=== PATIENT | male | born 1935 | race Caucasian/White ===

== ENCOUNTER 2021-07-26 15:43 | Inpatient (IN) | payer OTHER, MEDICARE ==
[2021-07-26] MEDS ORDERED: Morphine 4 MG/ML VIAL ONE (16:42)
[2021-07-26] MEDS ORDERED: Piperacillin/Tazobactam 4.5 GM VIAL ONE (16:48)
[2021-07-26 17:02] LABS: #Monocytes 0.6 10x3/uL (0.0-1.1); #Neutrophils 7.9 10x3/uL (1.5-8.4); %Basophils 0.2 % (0.0-2.0); %Eosinophils 0.4 % (0.0-6.0); %Lymphocytes 9.1 % (18.0-47.0); %Monocytes 6.6 % (0.0-10.0); %Neutrophils 83.3 % (40.0-75.0); Hemoglobin 12.7 g/dL (13.5-17.5); Mean Corpuscular HGB CONC 32.4 g/dL (32.0-36.0); Mean Corpuscular Hemoglobin 32.7 pg (27.0-33.0); Mean Platelet Volume 10.1 fl (7.4-10.4); Platelet Count 246 10x3/uL (150-450); RBC Distribution Width 13.1 % (11.5-14.5); Red Blood Cell (RBC) Count 3.88 10x6/uL (4.32-5.72); White Blood Cell (WBC) Count 9.5 10x3/uL (3.5-10.5)
[2021-07-26 17:19] LABS: ALT (SGPT) 15 U/L (8-55); AST (SGOT) 18 U/L (5-34); Albumin 3.8 g/dL (3.4-4.8); Alkaline Phosphatase 87 U/L (40-110); Anion Gap 15 mmol/L (10-20); BUN (Urea Nitrogen) 20 mg/dL (8.4-25.7); Bilirubin, Total 0.7 mg/dL (0.2-1.2); Calc. Creatinine Clearance 0 mL/min (70-130); Calcium 9.7 mg/dL (7.8-10.44); Carbon Dioxide 24 mmol/L (23-31); Chloride 102 mmol/L (98-107); Glucose 156 mg/dL (83-110); Potassium 4.2 mmol/L (3.5-5.1); Protein, Total 7.8 g/dL (5.8-8.1); Sodium 137 mmol/L (136-145)
[2021-07-26] MEDS ORDERED: Fentanyl 100 MCG/2 ML VIAL ONE (17:48)
[2021-07-26] MEDS ORDERED: Sodium Chloride 0.9% 1,000 ML IV SCH (18:45)
[2021-07-26] MEDS ORDERED: Dextrose 5% in Water 1,000 ML IV PRN (18:51)
[2021-07-26] MEDS ORDERED: Dextrose 50% Abboject 50 ML SYRINGE SLOW IVP PRN (18:51)
[2021-07-26 20:16] LABS: SARS-CoV-2 NAA Rapid Test Not Detected (NotDetected)
[2021-07-27] MEDS: Piperacillin/Tazobactam 3.375 GM in Sodium Chloride 0.9% 100 ML IVPB SCH ×3 (02:05→17:30)
[2021-07-27] MEDS: Sodium Chloride 0.9% 1,000 ML IV SCH ×2 (02:17→14:58)
[2021-07-27 03:47] LABS: #Monocytes 0.9 10x3/uL (0.0-1.1); #Neutrophils 11.9 10x3/uL (1.5-8.4); %Basophils 0.1 % (0.0-2.0); %Lymphocytes 6.7 % (18.0-47.0); %Monocytes 6.2 % (0.0-10.0); %Neutrophils 86.5 % (40.0-75.0); Hemoglobin 12.1 g/dL (13.5-17.5); Mean Corpuscular Hemoglobin 33.3 pg (27.0-33.0); Mean Corpuscular Volume 101.1 fl (81.2-95.1); Mean Platelet Volume 10.2 fl (7.4-10.4); Platelet Count 259 10x3/uL (150-450); RBC Distribution Width 13.2 % (11.5-14.5); Red Blood Cell (RBC) Count 3.63 10x6/uL (4.32-5.72); White Blood Cell (WBC) Count 13.8 10x3/uL (3.5-10.5)
[2021-07-27 04:02] LABS: ALT (SGPT) 14 U/L (8-55); AST (SGOT) 18 U/L (5-34); Albumin 3.7 g/dL (3.4-4.8); Alkaline Phosphatase 74 U/L (40-110); Anion Gap 16 mmol/L (10-20); BUN (Urea Nitrogen) 23 mg/dL (8.4-25.7); Bilirubin, Total 0.7 mg/dL (0.2-1.2); Calc. Creatinine Clearance 87 mL/min (70-130); Calcium 9.5 mg/dL (7.8-10.44); Carbon Dioxide 23 mmol/L (23-31); Chloride 104 mmol/L (98-107); Globulin 3.9 g/dL (2.4-3.5); Glucose 164 mg/dL (83-110); Potassium 4.3 mmol/L (3.5-5.1); Protein, Total 7.6 g/dL (5.8-8.1); Sodium 139 mmol/L (136-145)
[2021-07-27] MEDS: Morphine 4 MG/ML VIAL SLOW IVP PRN ×2 (10:27→15:33)
[2021-07-27] MEDS: Ondansetron PF 4 MG/2 ML Vial IVP PRN (10:55)
[2021-07-27] MEDS ORDERED: Fleet Enema 133 ML BOT PR SCH ×2 (11:30→14:45)
[2021-07-27] MEDS: HumaLOG 300 UNITS/3 ML VIAL SC PRN (18:41)
[2021-07-27] MEDS: Donepezil HCl 5 MG TAB PO SCH (22:01)
[2021-07-28] MEDS: Piperacillin/Tazobactam 3.375 GM in Sodium Chloride 0.9% 100 ML IVPB SCH ×3 (01:11→16:26)
[2021-07-28] MEDS: Morphine 4 MG/ML VIAL SLOW IVP PRN (05:28)
[2021-07-28] MEDS: Atorvastatin Calcium 40 MG TAB PO SCH (08:26)
[2021-07-28] MEDS: Escitalopram Oxalate 20 mg Tablet PO SCH (08:26)
[2021-07-28] MEDS: Spironolactone 25 MG TAB PO SCH (08:26)
[2021-07-28] MEDS: Sodium Chloride 0.9% 1,000 ML IV SCH (08:26)
[2021-07-28 08:31] LABS: #Monocytes 0.6 10x3/uL (0.0-1.1); #Neutrophils 12.6 10x3/uL (1.5-8.4); %Basophils 0.1 % (0.0-2.0); %Lymphocytes 6.3 % (18.0-47.0); %Monocytes 4.4 % (0.0-10.0); %Neutrophils 88.6 % (40.0-75.0); Hemoglobin 11.3 g/dL (13.5-17.5); Mean Corpuscular HGB CONC 32.6 g/dL (32.0-36.0); Mean Corpuscular Hemoglobin 32.9 pg (27.0-33.0); Mean Corpuscular Volume 101.2 fl (81.2-95.1); Mean Platelet Volume 10.3 fl (7.4-10.4); Platelet Count 252 10x3/uL (150-450); RBC Distribution Width 13.4 % (11.5-14.5); Red Blood Cell (RBC) Count 3.43 10x6/uL (4.32-5.72); White Blood Cell (WBC) Count 14.2 10x3/uL (3.5-10.5)
[2021-07-28 08:46] LABS: Anion Gap 16 mmol/L (10-20); BUN (Urea Nitrogen) 31 mg/dL (8.4-25.7); Calc. Creatinine Clearance 85 mL/min (70-130); Calcium 9.7 mg/dL (7.8-10.44); Carbon Dioxide 27 mmol/L (23-31); Chloride 103 mmol/L (98-107); Glucose 155 mg/dL (83-110); Potassium 3.5 mmol/L (3.5-5.1); Sodium 142 mmol/L (136-145)
[2021-07-28] MEDS ORDERED: Carvedilol 6.25 MG TAB PO SCH (09:00)
[2021-07-28] MEDS: Carvedilol 6.25 MG TAB PO SCH (16:25)
[2021-07-28] MEDS: Ondansetron PF 4 MG/2 ML Vial IVP PRN (17:11)
[2021-07-28] MEDS: Donepezil HCl 5 MG TAB PO SCH (20:52)
[2021-07-29] MEDS: Piperacillin/Tazobactam 3.375 GM in Sodium Chloride 0.9% 100 ML IVPB SCH ×3 (01:13→16:43)
[2021-07-29 05:29] LABS: #Monocytes 0.5 10x3/uL (0.0-1.1); #Neutrophils 12.3 10x3/uL (1.5-8.4); %Basophils 0.1 % (0.0-2.0); %Lymphocytes 5.2 % (18.0-47.0); %Monocytes 3.7 % (0.0-10.0); Hemoglobin 11.5 g/dL (13.5-17.5); Mean Corpuscular HGB CONC 31.9 g/dL (32.0-36.0); Mean Corpuscular Hemoglobin 32.8 pg (27.0-33.0); Mean Corpuscular Volume 102.6 fl (81.2-95.1); Mean Platelet Volume 10.5 fl (7.4-10.4); Platelet Count 280 10x3/uL (150-450); RBC Distribution Width 13.4 % (11.5-14.5); Red Blood Cell (RBC) Count 3.51 10x6/uL (4.32-5.72); White Blood Cell (WBC) Count 13.6 10x3/uL (3.5-10.5)
[2021-07-29 05:46] LABS: Anion Gap 18 mmol/L (10-20); BUN (Urea Nitrogen) 37 mg/dL (8.4-25.7); Calc. Creatinine Clearance 77 mL/min (70-130); Calcium 9.9 mg/dL (7.8-10.44); Carbon Dioxide 28 mmol/L (23-31); Chloride 102 mmol/L (98-107); Glucose 148 mg/dL (83-110); Magnesium 2.3 mg/dL (1.6-2.6); Potassium 3.5 mmol/L (3.5-5.1); Sodium 144 mmol/L (136-145)
[2021-07-29] MEDS: Sodium Chloride 0.9% 1,000 ML IV SCH (06:28)
[2021-07-29] MEDS: Carvedilol 6.25 MG TAB PO SCH ×2 (07:09→16:53)
[2021-07-29] MEDS ORDERED: Furosemide 20 MG/2 ML VIAL SLOW IVP SCH (08:00)
[2021-07-29] MEDS: Spironolactone 25 MG TAB PO SCH (09:15)
[2021-07-29] MEDS: Escitalopram Oxalate 20 mg Tablet PO SCH (09:15)
[2021-07-29] MEDS: Atorvastatin Calcium 40 MG TAB PO SCH (09:16)
[2021-07-29] MEDS: Sacubitril 49 MG/Valsartan 51 MG TABLET PO SCH ×2 (10:31→21:30)
[2021-07-29] MEDS: Donepezil HCl 5 MG TAB PO SCH (21:30)
[2021-07-30] MEDS ORDERED: Furosemide 20 MG/2 ML VIAL SLOW IVP SCH (00:15)
[2021-07-30] MEDS ORDERED: Albuterol Sulfate 2.5 mg/3 ml Neb NEB PRN (00:21)
[2021-07-30] MEDS: Sodium Chloride 0.9% 1,000 ML IV SCH (01:00)
[2021-07-30] MEDS: Morphine 4 MG/ML VIAL SLOW IVP PRN (01:14)
[2021-07-30] MEDS: Piperacillin/Tazobactam 3.375 GM in Sodium Chloride 0.9% 100 ML IVPB SCH ×3 (01:57→16:38)
[2021-07-30 04:47] LABS: #Monocytes 0.7 10x3/uL (0.0-1.1); #Neutrophils 11.2 10x3/uL (1.5-8.4); %Basophils 0.1 % (0.0-2.0); %Eosinophils 0.1 % (0.0-6.0); %Lymphocytes 6.5 % (18.0-47.0); %Monocytes 5.1 % (0.0-10.0); %Neutrophils 87.6 % (40.0-75.0); Hemoglobin 11.3 g/dL (13.5-17.5); Mean Corpuscular HGB CONC 33.1 g/dL (32.0-36.0); Mean Corpuscular Hemoglobin 33.2 pg (27.0-33.0); Mean Corpuscular Volume 100.3 fl (81.2-95.1); Mean Platelet Volume 10.3 fl (7.4-10.4); Platelet Count 301 10x3/uL (150-450); RBC Distribution Width 13.2 % (11.5-14.5); White Blood Cell (WBC) Count 12.8 10x3/uL (3.5-10.5)
[2021-07-30 05:01] LABS: Anion Gap 17 mmol/L (10-20); BUN (Urea Nitrogen) 51 mg/dL (8.4-25.7); Calc. Creatinine Clearance 70 mL/min (70-130); Calcium 9.9 mg/dL (7.8-10.44); Carbon Dioxide 29 mmol/L (23-31); Chloride 101 mmol/L (98-107); Glucose 147 mg/dL (83-110); Potassium 3.2 mmol/L (3.5-5.1); Sodium 144 mmol/L (136-145)
[2021-07-30] MEDS ORDERED: Artificial Tear Sol 15 ML BOT EA EYE PRN (08:02)
[2021-07-30] MEDS ORDERED: Sodium Chloride 0.65% Nasal 44 ML BOT EA NARE PRN (08:02)
[2021-07-30] MEDS ORDERED: Moisturizing Cream (Eucerin) 113 GM JAR TOP PRN (08:02)
[2021-07-30] MEDS ORDERED: Carvedilol 12.5 MG TAB PO SCH (08:30)
[2021-07-30] MEDS ORDERED: Potassium Chloride 20 MEQ TAB PO SCH (09:15)
[2021-07-30] MEDS: Atorvastatin Calcium 40 MG TAB PO SCH (09:38)
[2021-07-30] MEDS: Sacubitril 49 MG/Valsartan 51 MG TABLET PO SCH ×2 (09:38→20:31)
[2021-07-30] MEDS: Pantoprazole 40 MG VIAL IVP SCH (09:38)
[2021-07-30] MEDS: Spironolactone 25 MG TAB PO SCH (09:38)
[2021-07-30] MEDS: Escitalopram Oxalate 20 mg Tablet PO SCH (09:38)
[2021-07-30] MEDS: Furosemide 20 MG/2 ML VIAL SLOW IVP SCH (09:39)
[2021-07-30] MEDS ORDERED: Sodium Bicarbonate 2.5 MEQ/5 ML VIAL ONE (13:19)
[2021-07-30] MEDS ORDERED: Lidocaine 1% PF 5 ML VIAL ONE (13:19)
[2021-07-30] MEDS: Carvedilol 12.5 MG TAB PO SCH (16:38)
[2021-07-30] MEDS: Melatonin 3 MG TAB PER TUBE PRN (20:30)
[2021-07-30] MEDS: Donepezil HCl 5 MG TAB PO SCH (20:31)
[2021-07-31] MEDS: Sodium Chloride 0.9% 1,000 ML IV SCH ×3 (00:25→21:01)
[2021-07-31] MEDS: Piperacillin/Tazobactam 3.375 GM in Sodium Chloride 0.9% 100 ML IVPB SCH ×3 (01:45→16:33)
[2021-07-31 04:34] LABS: ALT (SGPT) 18 U/L (8-55); AST (SGOT) 33 U/L (5-34); Albumin 3.2 g/dL (3.4-4.8); Alkaline Phosphatase 66 U/L (40-110); Anion Gap 17 mmol/L (10-20); BUN (Urea Nitrogen) 55 mg/dL (8.4-25.7); Bilirubin, Total 0.6 mg/dL (0.2-1.2); Calc. Creatinine Clearance 83 mL/min (70-130); Calcium 9.6 mg/dL (7.8-10.44); Carbon Dioxide 29 mmol/L (23-31); Chloride 103 mmol/L (98-107); Globulin 3.8 g/dL (2.4-3.5); Glucose 140 mg/dL (83-110); Magnesium 2.4 mg/dL (1.6-2.6); Phosphorus 3.5 mg/dL (2.3-4.7); Potassium 3.1 mmol/L (3.5-5.1); Sodium 146 mmol/L (136-145)
[2021-07-31 04:46] LABS: #Eosinphils 0.1 10x3/uL (0.0-0.5); #Monocytes 0.9 10x3/uL (0.0-1.1); %Basophils 0.2 % (0.0-2.0); %Eosinophils 0.6 % (0.0-6.0); %Lymphocytes 10.6 % (18.0-47.0); %Monocytes 8.6 % (0.0-10.0); %Neutrophils 79.6 % (40.0-75.0); Hemoglobin 11.5 g/dL (13.5-17.5); Mean Corpuscular HGB CONC 31.5 g/dL (32.0-36.0); Mean Corpuscular Hemoglobin 32.4 pg (27.0-33.0); Mean Corpuscular Volume 102.8 fl (81.2-95.1); Mean Platelet Volume 10.2 fl (7.4-10.4); Platelet Count 302 10x3/uL (150-450); RBC Distribution Width 12.9 % (11.5-14.5); Red Blood Cell (RBC) Count 3.55 10x6/uL (4.32-5.72); White Blood Cell (WBC) Count 10.1 10x3/uL (3.5-10.5)
[2021-07-31] MEDS: Sacubitril 49 MG/Valsartan 51 MG TABLET PO SCH ×2 (08:57→21:07)
[2021-07-31] MEDS ORDERED: Potassium Chloride 20 MEQ TAB PO SCH (09:00)
[2021-07-31] MEDS: Spironolactone 25 MG TAB PO SCH (09:00)
[2021-07-31] MEDS: Escitalopram Oxalate 20 mg Tablet PO SCH (09:00)
[2021-07-31] MEDS: Atorvastatin Calcium 40 MG TAB PO SCH (09:00)
[2021-07-31] MEDS: Furosemide 20 MG/2 ML VIAL SLOW IVP SCH (09:01)
[2021-07-31] MEDS: Carvedilol 12.5 MG TAB PO SCH ×2 (09:01→16:33)
[2021-07-31] MEDS: Pantoprazole 40 MG VIAL IVP SCH (09:01)
[2021-07-31] MEDS: Morphine 4 MG/ML VIAL SLOW IVP PRN ×2 (09:25→23:23)
[2021-07-31] MEDS: Potassium Chloride 10 MEQ/100 ML PREMIX BAG IVPB SCH ×2 (09:30→17:42)
[2021-07-31] MEDS: Multivitamins, Adult 10 ML, ZINC/COPPER/MANGANESE/SELENIUM 1 ML in D15W-AA 5% w/o Lytes... IV SCH (16:33)
[2021-07-31] MEDS: Donepezil HCl 5 MG TAB PO SCH (21:00)
[2021-07-31] MEDS: HumaLOG 300 UNITS/3 ML VIAL SC PRN (21:38)
[2021-07-31] MEDS: Melatonin 3 MG TAB PER TUBE PRN (21:39)
[2021-08-01] MEDS ORDERED: Piperacillin/Tazobactam 3.375 GM VIAL ONE (00:16)
[2021-08-01] MEDS: Piperacillin/Tazobactam 3.375 GM in Sodium Chloride 0.9% 100 ML IVPB SCH ×3 (00:41→17:22)
[2021-08-01] MEDS: Potassium Chloride 10 MEQ/100 ML PREMIX BAG IVPB SCH (01:20)
[2021-08-01 04:49] LABS: #Eosinphils 0.2 10x3/uL (0.0-0.5); #Monocytes 1.1 10x3/uL (0.0-1.1); #Neutrophils 8.1 10x3/uL (1.5-8.4); %Basophils 0.3 % (0.0-2.0); %Eosinophils 2.2 % (0.0-6.0); %Lymphocytes 13.5 % (18.0-47.0); %Monocytes 10.1 % (0.0-10.0); %Neutrophils 73.1 % (40.0-75.0); Hemoglobin 11.8 g/dL (13.5-17.5); Mean Corpuscular HGB CONC 32.6 g/dL (32.0-36.0); Mean Corpuscular Hemoglobin 32.3 pg (27.0-33.0); Mean Corpuscular Volume 99.2 fl (81.2-95.1); Mean Platelet Volume 10.9 fl (7.4-10.4); Platelet Count 327 10x3/uL (150-450); Red Blood Cell (RBC) Count 3.65 10x6/uL (4.32-5.72); White Blood Cell (WBC) Count 11.1 10x3/uL (3.5-10.5)
[2021-08-01 05:13] LABS: Anion Gap 16 mmol/L (10-20); BUN (Urea Nitrogen) 50 mg/dL (8.4-25.7); Calc. Creatinine Clearance 81 mL/min (70-130); Calcium 9.4 mg/dL (7.8-10.44); Carbon Dioxide 30 mmol/L (23-31); Chloride 105 mmol/L (98-107); Glucose 144 mg/dL (83-110); Potassium 3.6 mmol/L (3.5-5.1); Sodium 147 mmol/L (136-145)
[2021-08-01] MEDS: Spironolactone 25 MG TAB PO SCH (10:04)
[2021-08-01] MEDS: Sacubitril 49 MG/Valsartan 51 MG TABLET PO SCH ×2 (10:05→20:54)
[2021-08-01] MEDS: Carvedilol 12.5 MG TAB PO SCH ×2 (10:05→17:22)
[2021-08-01] MEDS: Escitalopram Oxalate 20 mg Tablet PO SCH (10:05)
[2021-08-01] MEDS: Furosemide 20 MG/2 ML VIAL SLOW IVP SCH (10:05)
[2021-08-01] MEDS: Atorvastatin Calcium 40 MG TAB PO SCH (10:05)
[2021-08-01] MEDS: HumaLOG 300 UNITS/3 ML VIAL SC PRN ×2 (17:31→21:06)
[2021-08-01] MEDS: Multivitamins, Adult 10 ML, ZINC/COPPER/MANGANESE/SELENIUM 1 ML in D15W-AA 5% w/o Lytes... IV SCH (17:32)
[2021-08-01] MEDS ORDERED: Melatonin 3 MG TAB ONE (20:27)
[2021-08-01] MEDS: Melatonin 3 MG TAB PER TUBE PRN (20:53)
[2021-08-01] MEDS: Fat Emulsion 250 ML IVPB SCH (20:54)
[2021-08-01] MEDS: Donepezil HCl 5 MG TAB PO SCH (20:54)
[2021-08-02] MEDS: Piperacillin/Tazobactam 3.375 GM in Sodium Chloride 0.9% 100 ML IVPB SCH ×3 (02:30→17:52)
[2021-08-02] MEDS: HumaLOG 300 UNITS/3 ML VIAL SC PRN ×4 (06:10→21:23)
[2021-08-02] MEDS: Sacubitril 49 MG/Valsartan 51 MG TABLET PO SCH ×2 (08:25→20:22)
[2021-08-02] MEDS: Spironolactone 25 MG TAB PO SCH (08:26)
[2021-08-02] MEDS: Atorvastatin Calcium 40 MG TAB PO SCH (08:27)
[2021-08-02] MEDS: Furosemide 20 MG/2 ML VIAL SLOW IVP SCH (08:27)
[2021-08-02] MEDS: Carvedilol 12.5 MG TAB PO SCH ×2 (08:27→17:52)
[2021-08-02] MEDS: hydrALAZINE 20 MG/ML VIAL SLOW IVP PRN (13:16)
[2021-08-02] MEDS: Multivitamins, Adult 10 ML, ZINC/COPPER/MANGANESE/SELENIUM 1 ML in D15W-AA 5% w/o Lytes... IV SCH (18:18)
[2021-08-02] MEDS: Melatonin 3 MG TAB PER TUBE PRN (20:22)
[2021-08-02] MEDS: Donepezil HCl 5 MG TAB PO SCH (20:22)
[2021-08-03] MEDS: Piperacillin/Tazobactam 3.375 GM in Sodium Chloride 0.9% 100 ML IVPB SCH ×3 (02:19→16:16)
[2021-08-03 04:11] LABS: #Eosinphils 0.2 10x3/uL (0.0-0.5); #Monocytes 0.8 10x3/uL (0.0-1.1); #Neutrophils 6.6 10x3/uL (1.5-8.4); %Basophils 0.4 % (0.0-2.0); %Eosinophils 2.4 % (0.0-6.0); %Lymphocytes 15.7 % (18.0-47.0); %Neutrophils 71.2 % (40.0-75.0); Hemoglobin 11.5 g/dL (13.5-17.5); Mean Corpuscular HGB CONC 32.2 g/dL (32.0-36.0); Mean Corpuscular Hemoglobin 32.6 pg (27.0-33.0); Mean Corpuscular Volume 101.1 fl (81.2-95.1); Mean Platelet Volume 10.6 fl (7.4-10.4); Platelet Count 298 10x3/uL (150-450); RBC Distribution Width 12.9 % (11.5-14.5); Red Blood Cell (RBC) Count 3.53 10x6/uL (4.32-5.72); White Blood Cell (WBC) Count 9.3 10x3/uL (3.5-10.5)
[2021-08-03 04:43] LABS: Anion Gap 14 mmol/L (10-20); BUN (Urea Nitrogen) 42 mg/dL (8.4-25.7); CRP (Inflammatory) 1.54 mg/dL (= or < 0.5); Calc. Creatinine Clearance 100 mL/min (70-130); Carbon Dioxide 27 mmol/L (23-31); Chloride 104 mmol/L (98-107); Glucose 189 mg/dL (83-110); Sodium 142 mmol/L (136-145)
[2021-08-03 04:51] LABS: Potassium 2.8 mmol/L (3.5-5.1)
[2021-08-03] MEDS: HumaLOG 300 UNITS/3 ML VIAL SC PRN ×3 (05:59→21:44)
[2021-08-03] MEDS ORDERED: Electrolyte Replacement Protocol 1 EACH FS SCH (07:30)
[2021-08-03] MEDS ORDERED: Morphine 2 MG/ML VIAL SLOW IVP PRN (07:33)
[2021-08-03] MEDS: Sacubitril 49 MG/Valsartan 51 MG TABLET PO SCH ×2 (08:08→22:06)
[2021-08-03] MEDS: Escitalopram Oxalate 20 mg Tablet PO SCH (08:08)
[2021-08-03] MEDS: Spironolactone 25 MG TAB PO SCH (08:09)
[2021-08-03] MEDS: Potassium Chloride 20 MEQ in Premix Bag 1 BAG IVPB SCH ×2 (08:09→14:17)
[2021-08-03] MEDS: Carvedilol 12.5 MG TAB PO SCH ×2 (08:09→16:15)
[2021-08-03] MEDS: Atorvastatin Calcium 40 MG TAB PO SCH (08:11)
[2021-08-03] MEDS: hydrALAZINE 20 MG/ML VIAL SLOW IVP PRN (09:36)
[2021-08-03] MEDS ORDERED: Potassium Bicarbonate/Cit Ac 20 MEQ TAB PO SCH (12:00)
[2021-08-03] MEDS: Multivitamins, Adult 10 ML, ZINC/COPPER/MANGANESE/SELENIUM 1 ML in D15W-AA 5% w/o Lytes... IV SCH (18:58)
[2021-08-03] MEDS: Donepezil HCl 5 MG TAB PO SCH (22:06)
[2021-08-04] MEDS: Piperacillin/Tazobactam 3.375 GM in Sodium Chloride 0.9% 100 ML IVPB SCH ×3 (01:00→17:32)
[2021-08-04 06:09] LABS: Anion Gap 15 mmol/L (10-20); BUN (Urea Nitrogen) 43 mg/dL (8.4-25.7); Calc. Creatinine Clearance 99 mL/min (70-130); Calcium 8.9 mg/dL (7.8-10.44); Carbon Dioxide 24 mmol/L (23-31); Chloride 103 mmol/L (98-107); Glucose 205 mg/dL (83-110); Potassium 3.1 mmol/L (3.5-5.1); Sodium 139 mmol/L (136-145)
[2021-08-04 06:11] LABS: Phosphorus 2.3 mg/dL (2.3-4.7)
[2021-08-04] MEDS: HumaLOG 300 UNITS/3 ML VIAL SC PRN (06:31)
[2021-08-04] MEDS ORDERED: Potassium Bicarbonate/Cit Ac 20 MEQ TAB PO SCH (08:00)
[2021-08-04] MEDS ORDERED: Magnesium 2 GM/50 ML(in water) 2 GM in Premix Bag 1 BAG IVPB SCH (08:00)
[2021-08-04] MEDS: Pantoprazole 40 MG VIAL IVP SCH (09:17)
[2021-08-04] MEDS: Spironolactone 25 MG TAB PO SCH (09:18)
[2021-08-04] MEDS: Carvedilol 12.5 MG TAB PO SCH ×2 (09:18→17:32)
[2021-08-04] MEDS: Escitalopram Oxalate 20 mg Tablet PO SCH (09:18)
[2021-08-04] MEDS: Atorvastatin Calcium 40 MG TAB PO SCH (09:18)
[2021-08-04] MEDS: Sacubitril 49 MG/Valsartan 51 MG TABLET PO SCH ×2 (09:19→20:57)
[2021-08-04] MEDS ORDERED: Iopamidol 300 61% 100 ML VIAL FS ONE (10:15)
[2021-08-04] MEDS ORDERED: Potassium Chloride 20 MEQ in Premix Bag 1 BAG IVPB SCH (11:00)
[2021-08-04 14:30] LABS: Potassium 4.4 mmol/L (3.5-5.1)
[2021-08-04] MEDS: Fat Emulsion 250 ML IVPB SCH (17:32)
[2021-08-04] MEDS: Multivitamins, Adult 10 ML, ZINC/COPPER/MANGANESE/SELENIUM 1 ML in D15W-AA 5% w/o Lytes... IV SCH (17:32)
[2021-08-04] MEDS: Donepezil HCl 5 MG TAB PO SCH (20:56)
[2021-08-04] MEDS: Lantus 1000 UNITS/10 ML VIAL SC SCH (22:00)
[2021-08-04 22:32] LABS: SARS-CoV-2 PCR by NAA Not Detected (NotDetected)
[2021-08-05] MEDS: Piperacillin/Tazobactam 3.375 GM in Sodium Chloride 0.9% 100 ML IVPB SCH ×3 (02:00→17:19)
[2021-08-05 05:37] LABS: Anion Gap 12 mmol/L (10-20); BUN (Urea Nitrogen) 34 mg/dL (8.4-25.7); Calc. Creatinine Clearance 116 mL/min (70-130); Calcium 8.5 mg/dL (7.8-10.44); Carbon Dioxide 26 mmol/L (23-31); Chloride 99 mmol/L (98-107); Glucose 176 mg/dL (83-110); Magnesium 2.3 mg/dL (1.6-2.6); Potassium 3.1 mmol/L (3.5-5.1); Sodium 134 mmol/L (136-145)
[2021-08-05] MEDS ORDERED: Potassium Bicarbonate/Cit Ac 20 MEQ TAB PO SCH (06:00)
[2021-08-05] MEDS: PHOS-NAK 1 PKT PACK PO SCH ×2 (06:41→17:23)
[2021-08-05] MEDS ORDERED: Potassium Chloride 20 MEQ in Premix Bag 1 BAG IVPB SCH (09:00)
[2021-08-05] MEDS: Carvedilol 12.5 MG TAB PO SCH ×2 (09:44→17:19)
[2021-08-05] MEDS: Pantoprazole 40 MG VIAL IVP SCH (09:44)
[2021-08-05] MEDS: Sacubitril 49 MG/Valsartan 51 MG TABLET PO SCH ×2 (09:46→20:21)
[2021-08-05] MEDS: Atorvastatin Calcium 40 MG TAB PO SCH (09:50)
[2021-08-05] MEDS: Escitalopram Oxalate 20 mg Tablet PO SCH (09:50)
[2021-08-05 10:01] LABS: Potassium 3.4 mmol/L (3.5-5.1)
[2021-08-05] MEDS ORDERED: PROPOFOL 20 ML ONE (13:57)
[2021-08-05] MEDS: Multivitamins, Adult 10 ML, ZINC/COPPER/MANGANESE/SELENIUM 1 ML in D15W-AA 5% w/o Lytes... IV SCH (17:23)
[2021-08-05] MEDS: HumaLOG 300 UNITS/3 ML VIAL SC PRN (20:21)
[2021-08-05] MEDS: Melatonin 3 MG TAB PER TUBE PRN ×2 (20:21)
[2021-08-05] MEDS: Donepezil HCl 5 MG TAB PO SCH (20:21)
[2021-08-05] MEDS: Lantus 1000 UNITS/10 ML VIAL SC SCH (20:23)
[2021-08-06] MEDS: Piperacillin/Tazobactam 3.375 GM in Sodium Chloride 0.9% 100 ML IVPB SCH ×2 (01:09→09:57)
[2021-08-06 05:02] LABS: #Eosinphils 0.2 10x3/uL (0.0-0.5); #Monocytes 0.7 10x3/uL (0.0-1.1); #Neutrophils 7.5 10x3/uL (1.5-8.4); %Basophils 0.4 % (0.0-2.0); %Eosinophils 2.5 % (0.0-6.0); %Lymphocytes 7.9 % (18.0-47.0); %Monocytes 7.3 % (0.0-10.0); %Neutrophils 81.1 % (40.0-75.0); Hemoglobin 10.1 g/dL (13.5-17.5); Mean Corpuscular Hemoglobin 32.2 pg (27.0-33.0); Mean Corpuscular Volume 97.5 fl (81.2-95.1); Mean Platelet Volume 11.1 fl (7.4-10.4); Platelet Count 232 10x3/uL (150-450); RBC Distribution Width 12.8 % (11.5-14.5); Red Blood Cell (RBC) Count 3.14 10x6/uL (4.32-5.72); White Blood Cell (WBC) Count 9.2 10x3/uL (3.5-10.5)
[2021-08-06 05:26] LABS: ALT (SGPT) 30 U/L (8-55); AST (SGOT) 27 U/L (5-34); Albumin 2.9 g/dL (3.4-4.8); Alkaline Phosphatase 65 U/L (40-110); Anion Gap 13 mmol/L (10-20); BUN (Urea Nitrogen) 25 mg/dL (8.4-25.7); Bilirubin, Total 0.5 mg/dL (0.2-1.2); Calc. Creatinine Clearance 114 mL/min (70-130); Calcium 8.7 mg/dL (7.8-10.44); Carbon Dioxide 26 mmol/L (23-31); Chloride 100 mmol/L (98-107); Globulin 3.5 g/dL (2.4-3.5); Glucose 177 mg/dL (83-110); Phosphorus 2.1 mg/dL (2.3-4.7); Protein, Total 6.4 g/dL (5.8-8.1); Sodium 136 mmol/L (136-145)
[2021-08-06] MEDS: HumaLOG 300 UNITS/3 ML VIAL SC PRN (05:44)
[2021-08-06] MEDS ORDERED: Magnesium 2 GM/50 ML(in water) 2 GM in Premix Bag 1 BAG IVPB SCH (06:15)
[2021-08-06] MEDS ORDERED: Potassium Bicarbonate/Cit Ac 20 MEQ TAB PO SCH ×2 (06:15→13:30)
[2021-08-06] MEDS: Carvedilol 12.5 MG TAB PO SCH ×2 (10:19→18:06)
[2021-08-06] MEDS: Escitalopram Oxalate 20 mg Tablet PO SCH (10:19)
[2021-08-06] MEDS: Atorvastatin Calcium 40 MG TAB PO SCH (10:19)
[2021-08-06] MEDS: Sacubitril 49 MG/Valsartan 51 MG TABLET PO SCH ×2 (10:20→21:58)
[2021-08-06] MEDS: Spironolactone 25 MG TAB PO SCH (10:20)
[2021-08-06] MEDS: Potassium Chloride 20 MEQ in Premix Bag 1 BAG IVPB SCH ×2 (10:20→12:28)
[2021-08-06] MEDS: Pantoprazole 40 MG VIAL IVP SCH (10:20)
[2021-08-06 12:55] LABS: Potassium 3.3 mmol/L (3.5-5.1)
[2021-08-06] MEDS ORDERED: Potassium Chloride 20 MEQ TAB PO SCH (13:30)
[2021-08-06] MEDS ORDERED: Aspirin 81 mg Enteric Coated Tablet PO SCH (17:15)
[2021-08-06 18:00] LABS: Anion Gap 10 mmol/L (10-20); BUN (Urea Nitrogen) 20 mg/dL (8.4-25.7); Calc. Creatinine Clearance 115 mL/min (70-130); Calcium 8.8 mg/dL (7.8-10.44); Carbon Dioxide 27 mmol/L (23-31); Chloride 99 mmol/L (98-107); Glucose 196 mg/dL (83-110); Magnesium 2.4 mg/dL (1.6-2.6); Potassium 3.5 mmol/L (3.5-5.1); Sodium 132 mmol/L (136-145)
[2021-08-06 18:09] LABS: Phosphorus 1.9 mg/dL (2.3-4.7)
[2021-08-06] MEDS: Donepezil HCl 5 MG TAB PO SCH (21:57)
[2021-08-06] MEDS: Lantus 1000 UNITS/10 ML VIAL SC SCH (22:09)
[2021-08-06] MEDS: Melatonin 3 MG TAB PER TUBE PRN (23:10)
[2021-08-06] MEDS: PHOS-NAK 1 PKT PACK PO SCH (23:11)
[2021-08-07] MEDS: PHOS-NAK 1 PKT PACK PO SCH (02:11)
[2021-08-07 05:34] LABS: #Eosinphils 0.1 10x3/uL (0.0-0.5); #Monocytes 0.9 10x3/uL (0.0-1.1); #Neutrophils 8.8 10x3/uL (1.5-8.4); %Basophils 0.3 % (0.0-2.0); %Eosinophils 1.3 % (0.0-6.0); %Lymphocytes 8.5 % (18.0-47.0); %Monocytes 8.2 % (0.0-10.0); %Neutrophils 81.1 % (40.0-75.0); Hemoglobin 9.5 g/dL (13.5-17.5); Mean Corpuscular HGB CONC 33.1 g/dL (32.0-36.0); Mean Corpuscular Hemoglobin 32.4 pg (27.0-33.0); Mean Platelet Volume 11.4 fl (7.4-10.4); Platelet Count 226 10x3/uL (150-450); RBC Distribution Width 13.1 % (11.5-14.5); Red Blood Cell (RBC) Count 2.93 10x6/uL (4.32-5.72); White Blood Cell (WBC) Count 10.9 10x3/uL (3.5-10.5)
[2021-08-07 05:45] LABS: ALT (SGPT) 28 U/L (8-55); AST (SGOT) 26 U/L (5-34); Albumin 2.8 g/dL (3.4-4.8); Alkaline Phosphatase 63 U/L (40-110); Anion Gap 11 mmol/L (10-20); BUN (Urea Nitrogen) 19 mg/dL (8.4-25.7); Bilirubin, Total 0.6 mg/dL (0.2-1.2); Calc. Creatinine Clearance 116 mL/min (70-130); Calcium 8.5 mg/dL (7.8-10.44); Carbon Dioxide 26 mmol/L (23-31); Cardiac Risk 3.7 (Less than 4.5); Chloride 100 mmol/L (98-107); Cholesterol 81 mg/dl (< 200 Desired); Globulin 3.3 g/dL (2.4-3.5); Glucose 128 mg/dL (83-110); HDL Cholesterol 22 mg/dL (>60 Neg Risk); LDL Cholesterol, Calculated 42 mg/dL; Magnesium 2.2 mg/dL (1.6-2.6); Potassium 3.3 mmol/L (3.5-5.1); Protein, Total 6.1 g/dL (5.8-8.1); Sodium 134 mmol/L (136-145); Triglycerides 86 mg/dL (Less than 150)
[2021-08-07] MEDS ORDERED: Potassium Chloride 20 MEQ TAB PO SCH (06:15)
[2021-08-07 06:21] VITALS: BMI 35.3
[2021-08-07] MEDS: Acetaminophen 650 MG Suppository PR PRN ×2 (06:44→20:14)
[2021-08-07 09:03] LABS: Phosphorus 2.9 mg/dL (2.3-4.7)
[2021-08-07] MEDS: Escitalopram Oxalate 20 mg Tablet PO SCH (10:24)
[2021-08-07] MEDS: Sacubitril 49 MG/Valsartan 51 MG TABLET PO SCH ×2 (10:24→20:14)
[2021-08-07] MEDS: Spironolactone 25 MG TAB PO SCH (10:25)
[2021-08-07] MEDS: Atorvastatin Calcium 40 MG TAB PO SCH (10:25)
[2021-08-07] MEDS: Carvedilol 12.5 MG TAB PO SCH ×2 (10:25→18:00)
[2021-08-07] MEDS: Pantoprazole 40 MG VIAL IVP SCH (10:26)
[2021-08-07] MEDS: Aspirin 81 mg Enteric Coated Tablet PO SCH (10:26)
[2021-08-07] MEDS: Dextrose 5 % And 0.9 % NaCl 1,000 ML IV SCH (18:04)
[2021-08-07] MEDS: Donepezil HCl 5 MG TAB PO SCH (20:14)
[2021-08-07] MEDS: Lantus 1000 UNITS/10 ML VIAL SC SCH (20:32)
[2021-08-07] MEDS: Melatonin 3 MG TAB PER TUBE PRN (23:59)
[2021-08-08] MEDS: Acetaminophen 650 MG Suppository PR PRN
[2021-08-08] MEDS: Nystatin Powder 15 GM BOT TOP PRN ×2 (01:59→09:57)
[2021-08-08] MEDS: Pantoprazole 40 MG VIAL IVP SCH (09:56)
[2021-08-08] MEDS: Atorvastatin Calcium 40 MG TAB PO SCH (09:57)
[2021-08-08] MEDS: Spironolactone 25 MG TAB PO SCH (09:57)
[2021-08-08] MEDS: Aspirin 81 mg Enteric Coated Tablet PO SCH (09:57)
[2021-08-08] MEDS: Escitalopram Oxalate 20 mg Tablet PO SCH (09:57)
[2021-08-08] MEDS: Sacubitril 49 MG/Valsartan 51 MG TABLET PO SCH (09:57)
[2021-08-08] MEDS: Carvedilol 12.5 MG TAB PO SCH (09:57)
[2021-08-08 16:07] VITALS: BP 97/55; TEMP 97.5
[2021-08-08] MEDS: Dextrose 5 % And 0.9 % NaCl 1,000 ML IV SCH (16:44)
== END 2021-08-08 16:20 | disposition hospice, home (50) | DRG 545 ==
LOC: CSHERS 15:43 → CSHIMCU 22:01 → CSHTELE 07-28 18:42
PROVIDERS: ADMIT Student in an Organized Health Care Education/Training Program; ATTEND Family Medicine
PROC: 02HV33Z Insertion of Infusion Device into Superior Vena Cava, Percutaneous Approach (ICD-10-PCS; principal; 2021-07-30)
PROC: B5181ZA Fluoroscopy of Superior Vena Cava using Low Osmolar Contrast, Guidance (ICD-10-PCS; 2021-07-30)
PROC: B548ZZA Ultrasonography of Superior Vena Cava, Guidance (ICD-10-PCS; 2021-07-30)
PROC: 0D9670Z Drainage of Stomach with Drainage Device, Via Natural or Artificial Opening (ICD-10-PCS; 2021-07-30)
PROC: 0DB98ZX Excision of Duodenum, Via Natural or Artificial Opening Endoscopic, Diagnostic (ICD-10-PCS; 2021-08-05)
PROC: 0DB68ZX Excision of Stomach, Via Natural or Artificial Opening Endoscopic, Diagnostic (ICD-10-PCS; 2021-08-05)
DX: E85.4 Organ-limited amyloidosis (principal); I50.23 Acute on chronic systolic (congestive) heart failure; J96.01 Acute respiratory failure with hypoxia; K65.9 Peritonitis, unspecified; I63.9 Cerebral infarction, unspecified; K57.20 Diverticulitis of large intestine with perforation and abscess without bleeding; K56.7 Ileus, unspecified; G30.9 Alzheimer's disease, unspecified; F02.80 Dementia in other diseases classified elsewhere, unspecified severity, without behavioral disturbance, psychotic disturbance, mood disturbance, and anxiety; I48.0 Paroxysmal atrial fibrillation; J44.9 Chronic obstructive pulmonary disease, unspecified; E66.9 Obesity, unspecified; E78.00 Pure hypercholesterolemia, unspecified; K21.9 Gastro-esophageal reflux disease without esophagitis; Z96.653 Presence of artificial knee joint, bilateral; I25.10 Atherosclerotic heart disease of native coronary artery without angina pectoris; I25.5 Ischemic cardiomyopathy; I71.4 Abdominal aortic aneurysm, without rupture; E78.5 Hyperlipidemia, unspecified; I07.1 Rheumatic tricuspid insufficiency; E87.6 Hypokalemia; K20.90 Esophagitis, unspecified without bleeding; K63.89 Other specified diseases of intestine; G83.21 Monoplegia of upper limb affecting right dominant side; Z20.822 Contact with and (suspected) exposure to COVID-19; F41.9 Anxiety disorder, unspecified; F32.A Depression, unspecified; I11.0 Hypertensive heart disease with heart failure; D53.9 Nutritional anemia, unspecified; E11.65 Type 2 diabetes mellitus with hyperglycemia; Z98.890 Other specified postprocedural states; Z99.81 Dependence on supplemental oxygen; Z90.49 Acquired absence of other specified parts of digestive tract; Z87.891 Personal history of nicotine dependence; Z88.0 Allergy status to penicillin; Z88.5 Allergy status to narcotic agent; Z88.8 Allergy status to other drugs, medicaments and biological substances; Z95.810 Presence of automatic (implantable) cardiac defibrillator; Z68.35 Body mass index [BMI] 35.0-35.9, adult
CPT/HCPCS: 36415; 36416; 36569; 70450; 71045; 71275; 74018; 74019; 74174; 74177; 80048; 80053; 80061; 82274; 82378; 83605; 83735; 83880; 84100; 84132; 84484; 85025; 86140; 87040; 87045; 87046; 87081; 87324; 87427; 87449; 88305; 88313; 93005; 93306; 93880; 94760; 96365; 96366; 96375; C1751; C9113; J0360; J1815; J1940; J2270; J2405; J2543; J2704; J3010; J3475; J3480; J3490; J7042; J7050; Q9967; U0002; U0003; U0005